=== PATIENT | male | born 1980 | race American Indian/Alaskan Native ===

== ENCOUNTER 2017-08-27 19:11 | Emergency (ER) | payer SELFPAY ==
[2017-08-27 20:53] LABS: Mean Corpuscular HGB Conc 37 % (32-34); Mean Corpuscular Hemoglobin 34 pg (28-32); Mean Corpuscular Volume 92 fl (84-94); Platelet Count 228 K/mm3 (140-440); Red Blood Count 5.01 M/mm3 (3.65-5.03); Red Cell Distribution Width 13.2 % (13.2-15.2); White Blood Count 10.7 K/mm3 (4.5-11.0)
[2017-08-27 20:54] LABS: Hematocrit 46.1 % (35.5-45.6); Hemoglobin 16.8 gm/dl (11.8-15.2)
[2017-08-27 21:10] LABS: Anion Gap 17 mmol/L; BUN/Creatinine Ratio 16; Blood Urea Nitrogen 13 mg/dL (9-20); Calcium 9.2 mg/dL (8.4-10.2); Carbon Dioxide 28 mmol/L (22-30); Chloride 98.3 mmol/L (98-107); Glucose 85 mg/dL (75-100); Potassium 3.8 mmol/L (3.6-5.0); Sodium 139 mmol/L (137-145)
[2017-08-28 00:07] VITALS: BP 110/75
== END 2017-08-28 05:39 | disposition left against medical advice (07) ==
LOC: ED 19:11
DX: Z53.21 Procedure and treatment not carried out due to patient leaving prior to being seen by health care provider (principal)
CPT/HCPCS: 36415; 80048; 85027